=== PATIENT | male | born 1995 | race African-American/Black ===

== ENCOUNTER 2017-07-23 12:54 | Emergency (ER) | payer BC, OTHER ==
[~2017-07-23] VITALS: Ht 170.2 cm; Wt 60.1 kg
[~2017-07-23 12:54] MED LIST: ZLF50 PO
[2017-07-23 12:59] VITALS: TEMP 36.6; Ht 170.2 cm; Wt 60.1 kg
[2017-07-23] MEDS ORDERED: ONDANSETRON INJ 2 MG/ML 2 ML VIAL IV STA (13:57)
[2017-07-23] MEDS ORDERED: KETOROLAC TROMETHAMINE 30 MG/ML VIAL IV STA (13:57)
[2017-07-23] MEDS ORDERED: SODIUM CHLORIDE 0.9% 1000ML 2,000 ML IV STA (13:57)
[2017-07-23] MEDS ORDERED: ALBUT/IPRATROP 3MG/0.5MG NEB 3 ML VIAL INH STA (13:57)
[2017-07-23 14:29] LABS: BUN/CREATININE RATIO 11.1 (10-20); CALCIUM 11.2 mg/dl (8.5-10.1); CREATININE 1.2 mg/dl (0.60-1.40); POTASSIUM 4.2 mmol/L (3.5-5.1)
[2017-07-23 14:41] LABS: MEAN CELL VOLUME 84.5 fL (80-100); MEAN CORPUSCULAR HEMOGLOBIN 30.6 pg (25-34); MEAN CORPUSCULAR HGB CONC 36.2 g/dl (32-36); MEAN PLATELET VOLUME 10.4 fL (7.4-10.4); PLATELET COUNT 284 K/uL (130-400); RED BLOOD COUNT 5.56 M/uL (4.7-6.1); WHITE BLOOD COUNT 9.07 K/uL (4.8-10.8)
[2017-07-23 14:47] LABS: BASO % 0.6 %; BASO ABS # 0.05 K/uL (0-0.2); COMPLETE YES; EOS % 8.7 %; IG% 0.2 %; LYMPH % 35.1 %; LYMPH ABS # 3.18 K/uL (1.2-3.4); MONO % 13.9 %; NEUT % 41.5 %
--- NOTE | 2017-07-23 15:03 | DIAGNOSTIC IMAGING REPORT ---
CHEST 2 VIEWS ROUTINE CLINICAL HISTORY: sob, cough, rhonchi and wheezing, eval pnea, lung disease dyspnea COMPARISON STUDY: No previous studies for comparison. FINDINGS: The bones soft tissues and hemidiaphragms are normal. The cardiomediastinal silhouette is normal. The lungs are clear. The pulmonary vasculature is normal. IMPRESSION: Negative chest. The above report was generated using voice recognition software. It may contain grammatical, syntax or spelling errors. Electronically signed by: Anthony Reaves M.D. 07/23/2017 3:01 PM Dictated Date/Time: 07/23/2017 3:00 PM
--- NOTE | 2017-07-23 15:35 | EMERGENCY ROOM VISIT NOTE ---
History First contact with patient: 13:48 Chief Complaint: ILLNESS Stated Complaint: WEAKNESS,SORETHROAT,MUSCLE PAIN History of Present Illness The patient is a 22 year old male who presents to the Emergency Room with complaints of generalized weakness, fatigue, muscle aches, and sore throat that started 2 days ago. Patient states he began with a sore throat on Monday, unsure of fevers but did have some chills and sweats, as well as a cough. He then has developed nausea with several episodes of vomiting and loose diarrhea, and began to feel very weak. He states he has muscle aches all over, most significant in his back and lower legs. He has not tried any medications for his symptoms. He states he has had a hard time keeping up with his fluids due to the vomiting, thinks that he is dehydrated. He also states that he has lost about 10 pounds since his symptoms started. He denies any headache, neck pain or stiffness, vision changes, chest pain, shortness of breath, dizziness or passing out, abdominal pain, blood in the stool, dysuria or urinary frequency, or rash. He states that he had similar illness about a year ago for which he was admitted and states "they told me I had some sort of rare muscular disease" but he is unsure what this was. He denies any recent travel outside the [place], any unusual foods. Review of Systems A complete 10 point review of systems was reviewed with the patient with pertinent positives and negatives as per history of present illness. All else were negative. Past Medical/Surgical History Medical Problems: (1) Infective myositis (2) No significant past medical history (3) Rhabdomyolysis Surgical Problems: (1) No history of previous surgery Social History Smoking Status: Current Some Day Smoker Alcohol Use: none Marital Status: single Occupation Status: [employer] student Current/Historical Medications Scheduled Ondasetron Odt (Zofran Odt), 4 MG SL Q6H Allergies Coded Allergies: Banana (Verified Allergy, Severe, SHORTNESS OF BREATH, 07/23/17) "throat swelling" Peanut (Verified Allergy, Severe, SHORTNESS OF BREATH, 07/23/17) "throat swelling" Physical Exam Vital Signs Date Time Temp Pulse Resp B/P (MAP) Pulse Ox O2 Delivery O2 Flow Rate FiO2 07/23/17 19:46 76 16 127/71 98 07/23/17 19:09 75 16 110/73 97 Room Air 07/23/17 17:30 78 18 128/79 97 07/23/17 14:34 84 18 128/84 98 Room Air 07/23/17 12:59 36.6 120 18 102/76 95 Room Air Physical Exam CONSTITUTIONAL: No acute distress, but appears uncomfortable and unwell. Dehydrated. Alert and oriented X 4 with normal affect. HEENT: Normocephalic, atraumatic. Pupils equal, round and reactive to light, EOMI. TMs normal. Pharynx erythematous, edematous, small exudate noted. Dry mucous membranes. NECK: Supple, full active range of motion without discomfort. No nuchal rigidity, no meningismus. RESPIRATORY: Diffuse rhonchi and inspiratory/expiratory wheezing throughout all lung chavez, diminished. No stridor. Equal expansion bilaterally. CARDIOVASCULAR: Tachycardia. Regular rhythm with no murmurs, rubs or gallops. Normal peripheral perfusion. No edema. GASTROINTESTINAL: Diffuse upper abdominal tenderness just under the rib cage that reproduces complaint. Abdomen is otherwise soft and nondistended. No rebound tenderness or guarding. Bowel sounds present in all quadrants. MUSCULOSKELETAL: Full range of motion of all joints without discomfort. INTEGUMENTARY: No rash or other significant dermatologic conditions noted. NEUROLOGIC: Cranial nerves II-XII grossly intact. No focal neurologic deficits noted. Medical Decision & Procedures ER Provider Diagnostic Interpretation: CHEST 2 VIEWS ROUTINE CLINICAL HISTORY: sob, cough, rhonchi and wheezing, eval pnea, lung disease dyspnea COMPARISON STUDY: No previous studies for comparison. FINDINGS: The bones soft tissues and hemidiaphragms are normal. The cardiomediastinal silhouette is normal. The lungs are clear. The pulmonary vasculature is normal. IMPRESSION: Negative chest. Laboratory Results 07/23/17 13:50 Red Blood Count 5.56, Mean Corpuscular Volume 84.5, Mean Corpuscular Hemoglobin 30.6, Mean Corpuscular Hemoglobin Concent 36.2, Mean Platelet Volume 10.4, Neutrophils (%) (Auto) 41.5, Lymphocytes (%) (Auto) 35.1, Monocytes (%) (Auto) 13.9, Eosinophils (%) (Auto) 8.7, Basophils (%) (Auto) 0.6, Neutrophils # (Auto ) 3.77, Lymphocytes # (Auto) 3.18, Monocytes # (Auto) 1.26, Eosinophils # (Auto ) 0.79, Basophils # (Auto) 0.05 07/23/17 13:50 Test 07/23/17 13:50 07/23/17 14:15 07/23/17 17:06 07/23/17 18:35 White Blood Count 9.07 K/uL (4.8-10.8) Red Blood Count 5.56 M/uL (4.7-6.1) Hemoglobin 17.0 g/dL (14.0-18.0) Hematocrit 47.0 % (42-52) Mean Corpuscular Volume 84.5 fL (80-100) Mean Corpuscular Hemoglobin 30.6 pg (25-34) Mean Corpuscular Hemoglobin Concent 36.2 g/dl (32-36) Platelet Count 284 K/uL (130-400) Mean Platelet Volume 10.4 fL (7.4-10.4) Neutrophils (%) (Auto) 41.5 % Lymphocytes (%) (Auto) 35.1 % Monocytes (%) (Auto) 13.9 % Eosinophils (%) (Auto) 8.7 % Basophils (%) (Auto) 0.6 % Neutrophils # (Auto) 3.77 K/uL (1.4-6.5) Lymphocytes # (Auto) 3.18 K/uL (1.2-3.4) Monocytes # (Auto) 1.26 K/uL (0.11-0.59) Eosinophils # (Auto) 0.79 K/uL (0-0.5) Basophils # (Auto) 0.05 K/uL (0-0.2) RDW Standard Deviation 38.3 fL (36.4-46.3) RDW Coefficient of Variation 12.5 % (11.5-14.5) Immature Granulocyte % (Auto) 0.2 % Immature Granulocyte # (Auto) 0.02 K/uL (0.00-0.02) Red Blood Cell Morphology Unremarkable Anion Gap 11.0 mmol/L (3-11) Est Creatinine Clear Calc Drug Dose 83.5 ml/min Estimated GFR () 100.3 Estimated GFR (Non- 86.5 BUN/Creatinine Ratio 11.1 (10-20) Calcium Level 11.2 mg/dl (8.5-10.1) Total Bilirubin 1.2 mg/dl (0.2-1) Direct Bilirubin 0.3 mg/dl (0-0.2) Aspartate Amino Transf (AST/SGOT) 22 U/L (15-37) Alanine Aminotransferase (ALT/SGPT) 20 U/L (12-78) Alkaline Phosphatase 121 U/L (45-117) Total Creatine Kinase 135 U/L (39-308) Total Protein 9.8 gm/dl (6.4-8.2) Albumin 4.2 gm/dl (3.4-5.0) Lipase 92 U/L (73-393) Monoscreen NEG (NEG) Lactic Acid Level 2.1 mmol/L (0.4-2.0) Influenza Type A Antigen Neg for Influ A (NEG) Influenza Type B Antigen Neg for Influ B (NEG) Bedside Lactic Acid Venous 1.04 mmol/L (0.90-1.70) Urine Color DK YELLOW Urine Appearance CLOUDY (CLEAR) Urine pH 6.0 (4.5-7.5) Urine Specific Ona 1.033 (1.000-1.030) Urine Protein 2+ (NEG) Urine Glucose (UA) NEG (NEG) Urine Ketones 3+ (NEG) Urine Occult Blood NEG (NEG) Urine Nitrite NEG (NEG) Urine Bilirubin 2+ (NEG) Urine Urobilinogen NEG (NEG) Urine Leukocyte Esterase NEG (NEG) Urine WBC (Auto) 1-5 /hpf (0-5) Urine RBC (Auto) 0-4 /hpf (0-4) Urine Hyaline Casts (Auto) >30 /lpf (0-5) Urine Epithelial Cells (Auto) >30 /lpf (0-5) Urine Bacteria (Auto) NEG (NEG) Urine Pathogenic Casts >30 GRANULAR CASTS /lpf (0) Urine Mucus PRESENT (NONE PRSENT) Medications Administered Medications (Trade) Dose Ordered Sig/Haris Route Start Time Stop Time Status Last Admin Dose Admin Sodium Chloride 2,000 ml @ 999 mls/hr Q2H1M STAT IV 07/23/17 13:57 07/23/17 15:57 DC 07/23/17 14:21 999 MLS/HR Albuterol/ Ipratropium (Duoneb) 3 ml NOW STAT INH 07/23/17 13:57 07/23/17 14:02 DC 07/23/17 14:19 3 ML Ondansetron HCl (Zofran Inj) 4 mg NOW STAT IV 07/23/17 13:57 07/23/17 14:02 DC 07/23/17 14:21 4 MG Ketorolac Tromethamine (Toradol Inj) 15 mg NOW STAT IV 07/23/17 13:57 07/23/17 14:02 DC 07/23/17 14:20 15 MG Sodium Chloride 1,000 ml @ 999 mls/hr Q1H1M STAT IV 07/23/17 17:11 07/23/17 18:11 DC 07/23/17 18:01 999 MLS/HR Albuterol (Ventolin Hfa Inhaler) 2 puffs NOW ONCE INH 07/23/17 17:15 07/23/17 17:16 DC 07/23/17 18:00 2 PUFFS Medical Decision CC: Patient presenting with complaint of sore throat, fatigue/malaise, myalgias Interpretation of Labs: No leukocytosis, no anemia, mild hyponatremia, no other significant electrolyte abnormalities, BUN/creatinine upper limits of normal, normal liver enzymes and lipase. Normal CK. Negative rapid strep, mono, and influenza testing. UA shows large ketones suggestive of significant dehydration , no hemoglobinuria, no signs of infection. Slightly elevated lactic acid on initial evaluation, improved after IV fluids. Differential Diagnosis: Includes, but not limited to gastroenteritis, gastritis , viral URI, strep throat, viral pharyngitis, mononucleosis, dehydration, HUSEYIN, influenza, bronchitis, pneumonia, rhabdomyolysis, among others. Medication Reconciliation: I attest that I have personally reviewed the patient' s current medication list. Vital signs review: I reviewed the patient's vital signs and interpret them as follows: T: Afebrile; BP: Normotensive; HR: Tachycardic; RR: Within normal limits; Pulse Ox: Within normal limits on room air. Summary: Patient was evaluated at bedside, history of physical exam performed. Patient is alert and oriented, in no acute distress but does appear uncomfortable. He is tachycardic on exam, notably dehydrated, but is afebrile. Lungs are diffusely wheezy and rhonchitic, no focal consolidation notable on exam. Diffuse upper abdominal tenderness just under the rib cage, most significant in the epigastric region. No hepatosplenomegaly palpated. No Narvaez's sign. The remaining abdomen is benign. Orders were placed at bedside for labs, UA, lactic acid, CPK, rapid strep, monospot, IV fluid bolus for hydration, IV Toradol and Zofran for myalgias and nausea, chest x-ray to evaluate for pneumonia. Patient discussed with Dr. Olson, who agrees with my assessment and plan. Review of the patient's chart reveals a previous hospital admission last fall for rhabdomyolysis. CPK today is WNL and UA unremarkable. Labs reviewed as above, grossly unremarkable Lactic acid is slightly elevated, greatly improved after IV hydration. UA does show very large ketones, consistent with significant dehydration. Rapid strep, Monospot, and influenza are all negative. Patient reassessed multiple times throughout ED stay, patient reports significant improvement after IV hydration and Toradol. He states that his sore throat is much improved and he is tolerating PO fluids well. Tachycardia resolved after IV fluids as well. Patient was updated on all results and plan for discharge. He was instructed to follow-up with [facility] closely for continued management of his symptoms. He was instructed to continue aggressive hydration at home to prevent dehydration. He was also given return precautions should his symptoms worsen in any way, he verbalized understanding. Patient was discharged home in stable condition and ambulatory. Impression Primary Impression: Dehydration, severe Additional Impressions: Viral upper respiratory illness Myalgia Departure Information Dispostion Home / Self-Care Condition GOOD Prescriptions Ondasetron Odt (ZOFRAN ODT) 4 Mg Tab 4 MG SL Q6H for Nausea, #6 TAB Prov: Kayla Schmidt CRNP 07/23/17 Referrals [facility] (PCP) Patient Instructions ED Dehydration, ED URI Viral W Wheezing, My [facility] Additional Instructions You have been treated in the Emergency Department today for Dehydration and upper respiratory illness. Laboratory tests and imaging results have ruled out any emergent reasons for further evaluation or admission. Use the albuterol inhaler with spacer, 2 puffs every 4-6 hours as needed for coughing, wheezing, chest tightness. You have been prescribed Zofran to be taken every 6-8 hours as needed for severe nausea or vomiting. Take as prescribed. Ibuprofen 600 mg every 6-8 hours for pain, muscle aches. It is ESSENTIAL that you maintain adequate hydration with oral fluids! Some suggestions include: - Water is the IDEAL replacement for lost fluids. You should initially sip at the water to help facilitate increased intestinal absorption rate and to decrease the possibility of nausea/vomiting. - Carbohydrate/Electrolyte-Containing Drinks (i.e. Gatorade, Powerade, Pedialyte). All of these are good choices, but it is important to remember that all of these drinks contain a high concentration of sugar. - Popsicles, ice chips, and fruit juices are all other options. - My FAVORITE dehydration remedy is to mix a 1:1 solution of bottled Gatorade with bottled water. This dilution allows for a palatable flavor with added benefit of a reduction in the amount of sugar consumption. Please follow-up with your Primary Care Provider or [facility] in 1-2 days for reevaluation. Return to the Emergency Department if your current symptoms worsen despite treatment course outlined above, or if you develop any of the following symptoms : Fever/chills, increased thirst, weakness, dizziness, palpitations, confusion, sluggishness, fainting, inability to sweat, or decreased urine output. School Instructions Return To School: 2 days Problem Qualifiers
[2017-07-23] MEDS ORDERED: SODIUM CHLORIDE 0.9% 1000ML 1,000 ML IV STA (17:11)
[2017-07-23] MEDS ORDERED: ALBUTEROL HFA 8 GM INHALER INH ONE (17:15)
[2017-07-23 18:57] LABS: URINE APPEARANCE CLOUDY (CLEAR); URINE COLOR DK YELLOW; URINE EPITHELIAL CELL AUTO >30 /lpf (0-5); URINE NITRITE NEG (NEG); URINE SPECIFIC GRAVITY 1.033 (1.000-1.030); UROBILINOGEN NEG (NEG); ZZUR CULT IF INDIC CLEAN CATCH NO
[2017-07-23 18:58] LABS: URINE BILIRUBIN 2+ (NEG)
[2017-07-23 18:59] LABS: MANUAL MICROSCOPIC REQUIRED? NO; REVIEW REQ? YES
[2017-07-23 19:17] LABS: URINE PATH CASTS >30 GRANULAR CASTS /lpf (0)
[2017-07-23 19:18] LABS: URINE MUCUS PRESENT (NONE PRSENT)
[2017-07-23] MEDS ORDERED: ONDA4TAB10 SL (19:20)
[2017-07-23 19:46] VITALS: BP 127/71; PULSE 76; O2SAT 98
[2017-07-25 13:53] LABS: EBV EARLY ANTIGEN AB <9.00 U/ML
== END 2017-07-23 19:48 | disposition home or self-care (01) ==
LOC: C.EDB 12:56 → C.EDC 19:48
DX: E86.0 Dehydration (principal); J06.9 Acute upper respiratory infection, unspecified; M79.1 Myalgia; F17.200 Nicotine dependence, unspecified, uncomplicated